=== PATIENT | male | born 1960 | race Caucasian/White ===

== ENCOUNTER 2018-11-03 10:21 | Inpatient (IN) ==
--- NOTE | 2018-11-03 10:55 | Diag Imaging Result Doc PS360 ---
EXAM: CHEST-2 VIEWS HISTORY: cough chest congestion TECHNIQUE: Chest two views COMPARISON: None. FINDINGS: The lungs are well expanded. The heart is not enlarged. The vessels are not distended. There are no infiltrates. No pleural effusions. IMPRESSION: No pneumonia Electronically signed by Richy Quiroga 11/03/2018 10:53 AM
--- NOTE | 2018-11-03 10:59 | PROVIDER DOCUMENTATION ---
HPI-Respiratory General - General Chief Complaint: General Adult Stated Complaint: COUGH / CHILLS / CHEST PAIN Time Seen by Provider: 11/03/18 10:43 Source: patient Allergies/Adverse Reactions: Patient Allergies Allergy/AdvReac Type Severity Reaction Status Date / Time No Known Allergies Allergy Verified 11/03/18 11:24 Home Medications: Home Medication List Medication Instructions Recorded Confirmed Last Taken Type NK [No Home Medications] 11/03/18 11/03/18 Unknown History - History of Present Illness-Resp Nature of Presenting Problem: Pt is a 58 year old male that presents today with the complaint of coughing for 6 weeks. She states that he has been to the urgent care twice and has tried antibiotics and steroids and nothing seems to be helping. He states he is coughing so much it is making him throw up. He also reports some chest discomfort that is worse with coughing. He reports some diarrhea but denies abdominal pain. Pt denies any family history of cardiac or respiratory problems. Quality of Pain: reports: tightness Severity in ED: reports: moderate Onset/Duration: reports: other (6 weeks ago) Timing: reports: still present Context: denies: multiple patients with similar complaints, aspiration/choking Exposure: reports: unknown cause Cough Quality/Degree: reports: moderate, dry cough Episode Frequency: no prior episodes Current Respiratory Medication Therapy: Initiated see nurses note Modifying Factors: improves with: coughing, deep breath Associated Symptoms: reports: chest pain/soreness, cough, fever/chills, headache , hurts to breathe, wheezing Similar Symptoms Previously?: No Recently seen or treated by another doctor?: Yes Review of Systems - Adult - REVIEW OF SYSTEMS - ADULT Constitutional: reports: no symptoms reported Eyes: reports: no symptoms reported Ears, Nose, Mouth & Throat: reports: no symptoms reported Cardiovascular: reports: see HPI Respiratory: reports: see HPI Gastrointestinal: reports: no symptoms reported Genitourinary: reports: no symptoms reported Musculoskeletal: reports: no symptoms reported Integumentary: reports: no symptoms reported Neurological: reports: no symptoms reported Psychiatric: reports: no symptoms reported Endocrine: reports: no symptoms reported Hematologic/Lymphatic: reports: no symptoms reported Allergic/Immunologic: reports: no symptoms reported All Other Systems: Reviewed and Negative Past History - Adult - PAST MEDICAL HISTORY-ADULT Review of Records: reports: Old Records Reviewed, Nursing Assessment Review, Medications Reviewed, Social history reviewed & non-contributory. Major Childhood Illnesses: reports: denies history Cardiovascular: reports: denies history Respiratory: reports: denies history Gastrointestinal: reports: denies history Obstetrical/Gynecological: reports: denies history Genitourinary: reports: denies history Musculoskeletal: reports: denies history Neurological: reports: denies history Psychiatric: reports: denies history Endocrine/Immune: reports: denies history Other Conditions: reports: denies history - PRIOR SURGERIES/PROCEDURES Surgical/Procedure History: reports: none - IMMUNIZATION STATUS Childhood Immunizations: See Nurse Assessment Flu Vaccine: See Nurse Assessment - FAMILY HISTORY Family History: reviewed, not pertinent - SOCIAL HISTORY Smoking: non-smoker Physical Exam-General - PHYSICAL EXAM-ADULT Initial Vital Signs Reviewed: Yes - CONSTITUTIONAL General Appearance: appears well, alert, no apparent distress - EYES Eyes: PERRL/EOMI, pink conjunctivae - HEAD, EARS, NOSE, MOUTH & THROAT HENMT: normocephalic/atraumatic, moist mucous membranes, normal ENT inspection - NECK Neck: non-tender, full range of motion, supple, normal inspection - RESPIRATORY Respiratory: chest non-tender, lungs clear, normal breath sounds, no accessory muscle use, increased rate - CARDIOVASCULAR Cardiovascular: normal peripheral pulses, regular rate, rhythm - GASTROINTESTINAL (ABDOMEN) Abdominal Exam: normal bowel sounds, non tender, soft - LYMPHATIC Lymphatic: no adenopathy - MUSCULOSKELETAL Back Exam: normal inspection, no CVA tenderness, no vertebral tenderness Extremity: normal range of motion, non-tender, normal gait, normal inspection - SKIN Integumentary: normal color, normal turgor, warm/dry - 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, grossly normal, no motor/sensory deficits - PSYCHIATRIC Psych/Mental Status: normal mood/affect, normal thought content, normal thought process, oriented x 3 - HEART Score HEART Score: History: Slightly Suspicious HEART Score: ECG: Normal HEART Score: Age: 45-65 Years HEART Score: Risk Factors for Atherosclerotic Disease: No Risk Factors Known HEART Score: Troponin: < or = Normal Limit Total HEART Score:: 1 Progress - PLAN OF CARE/RESULTS Progress/Plan/Lab Results: Vital Signs - 8 hr 11/03/18 10:30 11/03/18 12:30 11/03/18 13:47 Temperature 99.5 F Pulse Rate 95 H 90 80 Respiratory Rate 20 16 24 Blood Pressure 108/69 155/79 O2 Sat by Pulse Oximetry 96 92 L 96 Laboratory Results - last 24 hr 11/03/18 11/03/18 11/03/18 11:02 11:02 11:02 WBC 8.52 RBC 5.23 Hgb 15.6 Hct 46.2 MCV 88.3 MCH 29.8 MCHC 33.8 RDW Std Deviation 12.9 Plt Count 200 MPV 9.9 Immature Gran % (Auto) 0.2 Neut % (Auto) 80.4 H Lymph % (Auto) 8.3 L Morton % (Auto) 9.0 Eos % (Auto) 1.9 Baso % (Auto) 0.2 Immature Gran # (Auto) 0.02 Neut # (Auto) 6.84 H Lymph # (Auto) 0.71 L Morton # (Auto) 0.77 H Eos # (Auto) 0.16 Baso # (Auto) 0.02 PT INR PTT (Actin FS) D-Dimer, Quantitative Sodium Potassium Chloride Carbon Dioxide Anion Gap BUN Creatinine Estimated GFR/1.73 m2 BUN/Creatinine Ratio Glucose Calculated Osmolality Calcium Total Bilirubin AST ALT Alkaline Phosphatase Creatine Kinase 47 Troponin T < 0.010 Total Protein Albumin Globulin Albumin/Globulin Ratio 11/03/18 11/03/18 11/03/18 11:02 11:02 11:02 WBC RBC Hgb Hct MCV MCH MCHC RDW Std Deviation Plt Count MPV Immature Gran % (Auto) Neut % (Auto) Lymph % (Auto) Morton % (Auto) Eos % (Auto) Baso % (Auto) Immature Gran # (Auto) Neut # (Auto) Lymph # (Auto) Morton # (Auto) Eos # (Auto) Baso # (Auto) PT 13.7 INR 1.00 PTT (Actin FS) 27.1 D-Dimer, Quantitative 3.10 H Sodium 134 L Potassium 3.8 Chloride 97 L Carbon Dioxide 26 Anion Gap 12 BUN 14 Creatinine 0.7 Estimated GFR/1.73 m2 > 60 BUN/Creatinine Ratio 20 Glucose 111 H Calculated Osmolality 269 Calcium 8.8 Total Bilirubin 1.00 AST 17 ALT 15 Alkaline Phosphatase 94 Creatine Kinase Troponin T Total Protein 7.2 Albumin 4.0 Globulin 3.0 Albumin/Globulin Ratio 1.0 Orders Category Date Time Status Admit - [facility] Routine AdmDCTranf 11/03/18 15:48 Active Activity - Up with Assistance ORDERED Care 11/03/18 15:48 Active Nursing- Obtain EKG ONCE Care 11/03/18 10:35 Active Heart Healthy Diet Diet 11/03/18 15:49 Active CHEST-2 VIEWS [RAD] Stat Exams 11/03/18 10:35 Completed CTA [CT ANGIOGRM PULMONARY ARTERIES] [CT] Stat Exams 11/03/18 14:15 Completed CBC WITH ELECTRONIC DIFF [HEME] Stat Lab 11/03/18 11:02 Completed CK PROFILE [SP CHEM] Stat Lab 11/03/18 11:02 Completed COMPREHENSIVE METABOLIC PANEL [CHEM] Stat Lab 11/03/18 11:02 Completed D-DIMER [COAG] Stat Lab 11/03/18 11:02 Completed PROTIME WITH INR [COAG] Stat Lab 11/03/18 11:02 Completed PTT [COAG] Stat Lab 11/03/18 11:02 Completed TROPONIN T Stat Lab 11/03/18 11:02 Completed Acetaminophen [Tylenol] Med 11/03/18 15:48 Active 650 mg PO Q4H PRN PRN Albuterol 2.5MG/Ipratrop 0.5MG [Duoneb (A & A)] Med 11/03/18 11:44 Discontinued 3 ml INH NOW ONE Enoxaparin 1 mg/kg [Lovenox 1 mg/kg] Med 11/03/18 15:00 Discontinued 1 each SUBQ NOW ONE Enoxaparin [Lovenox] Med 11/03/18 16:00 Active 100 mg SUBQ Q12H Hydrocodone/APAP 7.5 mg/325 mg [Vader-7.5] Med 11/03/18 15:48 Active See Dose Instructions PO Q4H PRN Ipratropium Randolph Neb [Atrovent Neb] Med 11/03/18 16:00 Active 0.5 mg INH RTQ6H Levalbuterol Neb [Xopenex Neb] Med 11/03/18 16:00 Active 1.25 mg INH RTQ6H Ondansetron [Zofran] Med 11/03/18 15:48 Active 4 mg IV Q4H PRN PRN Aerosol Treatments Routine Oth 11/03/18 15:48 Active breathing treatment [Aerosol Treatments] Stat Oth 11/03/18 11:44 Active EKG [EKG] Stat Ther 11/03/18 10:35 Draft Transfer/Admit Order [TRANSFER] Routine Transfer 11/03/18 15:42 Ordered ED: EKG Interpretation Patient Name: LIBBY PORTER Date of : 64 Patient Status: Emergency Emergency Provider: Doctor,Unassigned Date: 11/03/18 10:47 Initialization Date: 11/03/18 10:47 This chart was entered by Estefanía Parra Scribe, acting as scribe for Djaa Abdul MD. EKG Interpretation - EKG Time of EKG reading by physician:: 10:47 EKG Read and Signed by:: Daja Abdul EKG Interpretation (*Must complete 3 of following elements*): Abnormal (inferior infarct) Rate: 85 Rhythm: nsr QRS: normal [place] Interval: normal Laboratory Tests 11/03/18 11/03/18 11/03/18 11:02 11:02 11:02 WBC 8.52 RBC 5.23 Hgb 15.6 Hct 46.2 MCV 88.3 MCH 29.8 MCHC 33.8 RDW Std Deviation 12.9 Plt Count 200 MPV 9.9 Immature Gran % (Auto) 0.2 Neut % (Auto) 80.4 H Lymph % (Auto) 8.3 L Morton % (Auto) 9.0 Eos % (Auto) 1.9 Baso % (Auto) 0.2 Immature Gran # (Auto) 0.02 Neut # (Auto) 6.84 H Lymph # (Auto) 0.71 L Morton # (Auto) 0.77 H Eos # (Auto) 0.16 Baso # (Auto) 0.02 PT INR PTT (Actin FS) D-Dimer, Quantitative Sodium Potassium Chloride Carbon Dioxide Anion Gap BUN Creatinine Estimated GFR/1.73 m2 BUN/Creatinine Ratio Glucose Calculated Osmolality Calcium Total Bilirubin AST ALT Alkaline Phosphatase Creatine Kinase 47 Troponin T < 0.010 Total Protein Albumin Globulin Albumin/Globulin Ratio 11/03/18 11/03/18 11/03/18 11:02 11:02 11:02 WBC RBC Hgb Hct MCV MCH MCHC RDW Std Deviation Plt Count MPV Immature Gran % (Auto) Neut % (Auto) Lymph % (Auto) Morton % (Auto) Eos % (Auto) Baso % (Auto) Immature Gran # (Auto) Neut # (Auto) Lymph # (Auto) Morton # (Auto) Eos # (Auto) Baso # (Auto) PT 13.7 INR 1.00 PTT (Actin FS) 27.1 D-Dimer, Quantitative 3.10 H Sodium 134 L Potassium 3.8 Chloride 97 L Carbon Dioxide 26 Anion Gap 12 BUN 14 Creatinine 0.7 Estimated GFR/1.73 m2 > 60 BUN/Creatinine Ratio 20 Glucose 111 H Calculated Osmolality 269 Calcium 8.8 Total Bilirubin 1.00 AST 17 ALT 15 Alkaline Phosphatase 94 Creatine Kinase Troponin T Total Protein 7.2 Albumin 4.0 Globulin 3.0 Albumin/Globulin Ratio 1.0 Result Diagrams: 11/03/18 11:02 11/03/18 11:02 - REASSESSMENT Reassessment #1 Time Reassessed: 13:00 Status: unchanged Reassessment Comment: Breathing tx did not help. Lab results reviewed with pt. Will do CTA chest. Reassessment #2 Time Reassessed: 14:58 Status: worsening Reassessment Comment: O2sat% has been decreasing. Pt on 2L o2 now. Pt agreeable to admit. - XRAY 1 XRAY Study: Chest Impression: See EMR Report ([facility] - [address] [place] [address], [address] [address] [facility] - [address] [place] [address] Department of Imaging Patient: LIBBY PORTER Date: 11/03/18MR#: [id number] : 1960ADM Status: PRE ERAcct#: [id number] Age/Sex: 58/MRoom/Bed: Loc: P.ED Ordering Physician: Daja Abdul MD Family Physician: None,PCP Reason for Procedure: cough chest congestion Signed EXAM: CHEST-2 VIEWS HISTORY: cough chest congestion TECHNIQUE: Chest two views COMPARISON: None. FINDINGS: The lungs are well expanded. The heart is not enlarged. The vessels are not distended. There are no infiltrates. No pleural effusions. IMPRESSION: No pneumonia Electronically signed by Richy Quiroga 11/03/2018 10:53 AM 11/03/18 1053 Interpreting Physician: Richy Quiroga MD Dictated Date/Time: 11/03/18 1052 cc: Daja Abdul MD; None,PCP) - CT/MRI 1 CT Study: Angiogram Impression: Discussed w/Radiology, See EMR Report ([facility] - [address] [facility], [address], [place] [address] [facility] - [address] [place] [address] Department of Imaging Patient: LIBBY PORTER Date: 11/03/18MR#: [id number] : 1960ADM Status: REG ERAt#: [id number] Age/Sex: 58/MRoom/Bed: Loc: P.ED Ordering Physician: Melyssa Sanders Family Physician: None,PCP Reason for Procedure: elevated d-dimer Signed EXAM: CT ANGIOGRM PULMONARY ARTERIES HISTORY: elevated d-dimer TECHNIQUE: CT chest with intravenous contrast. Pulmonary arterial protocol with MIP images. COMPARISON: None. FINDINGS: There are multiple large bilateral pulmonary emboli extending into each main lobar artery and multiple lobar branches. Emboli are more prominent on the right than the left. Trace bilateral pleural fluid. No aortic aneurysm or dissection. No cardiomegaly. No enlarged lymph nodes. There are small infiltrates in the right lower lobe. No consolidation. No bronchiectasis. IMPRESSION: Multiple bilateral pulmonary emboli. This report was discussed with Melyssa Sanders in the [place] emergency room on 11/03/2018 at 2:35 PM and was readback. This exam was performed using automated exposure control, adjustment of mA or kV according to patient size, and/or use of iterative reconstruction technique. Electronically signed by Richy Quiroga 11/03/2018 2:38 PM 11/03/18 1438 Interpreting Physician: Richy Quiroga MD Dictated Date/Time: 11/03/18 1434 cc: Melyssa Sanders; None,PCP) - CONSULTS/PCP/HOSPITALIST Notification #1 *Consult/PCP/Hospitalist*: Dr. Ace Time Discussed: 14:55 Consult Disposition: Will see in ED, Admit Departure - Departure Date of Disposition Decision: 11/03/18 Time of Disposition Decision: 15:00 DIAGNOSIS: Pulmonary embolism Qualifiers: Pulmonary embolism type: saddle Chronicity: acute Acute cor pulmonale presence: without acute cor pulmonale Qualified Code(s): I26.92 - Saddle embolus of pulmonary artery without acute cor pulmonale Disposition: ADMITTED INPATIENT Certified Medical Emergency: Emergent Condition: Stable - Critical Care Note This patient required my direct & personal management of CC.: No Attestation - Physician/ ALFONSO Attestation Patient care was provided by Advanced Practice Provider:: Yes Advanced Practice Provider:: Melyssa Sanders V. Advanced Practice Provider documentation review:: The Mid-level provider documentation, treatment plan and medical decision making was reviewed by the physician who agrees with all treatment and medical decision making by the MLP. The physician spent face to face time with patient:: No Advanced Practice Provider documentation review:: Supervising physician onsite and consulted in the evaluation and care of this patient. The physician did not have a face to face encounter with the patient.
[2018-11-03 11:29] LABS: BASO# 0.02 X1000 (0.0-0.2); BASO% 0.2 % (0.0-0.8); EOS# 0.16 X1000 (0.0-0.7); EOS% 1.9 % (0.0-10.0); HEMATOCRIT 46.2 % (42.0-52.0); HEMOGLOBIN 15.6 g/dL (14.0-18.0); IMM GRAN# 0.02 X1000 (0.0-0.04); IMM GRAN% 0.2 % (0.0-0.5); LYMPH# 0.71 X1000 (1.2-3.4); LYMPH% 8.3 % (20.5-51.1); MCH 29.8 PG (27-31); MCHC 33.8 g/dL (33-37); MCV 88.3 FL (81-99); MONO# 0.77 X1000 (0.11-0.59); MPV 9.9 FL (7.4-10.4); NEUT# 6.84 X1000 (1.4-6.5); NEUT% 80.4 % (42.2-75.2); PLT 200 X1000 (130-400); RBC 5.23 XMIL (4.7-6.1); RDW 12.9 % (11.5-14.5); WBC 8.52 X1000 (4.8-10.8)
[2018-11-03 11:31] LABS: PROTIME 13.7 Seconds (11.0-16.0)
[2018-11-03 11:32] LABS: PTT 27.1 Seconds (22.3-41.8)
[2018-11-03 11:37] LABS: AGAP 12; ALKALINE PHOSPHATASE 94 U/L (32-122); BUN 14 mg/dL (8-22); CALCIUM 8.8 mg/dL (8.8-10.2); CHLORIDE 97 mmol/L (98-107); COSMO 269; CREATININE 0.7 mg/dL (0.7-1.2); ESTIMATED GFR > 60; GLUCOSE 111 mg/dL (70-104); GOT 17 U/L (10-34); GPT 15 U/L (10-44); POTASSIUM 3.8 mmol/L (3.5-5.1); SODIUM 134 mmol/L (136-145); TCO2 26 mmol/L (25-35); TOTAL PROTEIN 7.2 g/dL (6.3-8.3)
[2018-11-03] MEDS ORDERED: DUONEB (A & A) INH ONE (11:44)
--- NOTE | 2018-11-03 13:40 | EKG Report ---
Test Performed on : 11/03/2018 10:44:53 AM Test Reason : congestion cough chest discomfort Blood Pressure : / mmHG Vent. Rate : 085 BPM Atrial Rate : 085 BPM P-R Int : 170 ms QRS Dur : 084 ms QT Int : 352 ms P-R-T Axes : 026 -19 028 degrees QTc Int : 418 ms Normal sinus rhythm. Inferior infarct , age undetermined Abnormal ECG No previous ECGs available Unconfirmed Result
--- NOTE | 2018-11-03 14:40 | Diag Imaging Result Doc PS360 ---
EXAM: CT ANGIOGRM PULMONARY ARTERIES HISTORY: elevated d-dimer TECHNIQUE: CT chest with intravenous contrast. Pulmonary arterial protocol with MIP images. COMPARISON: None. FINDINGS: There are multiple large bilateral pulmonary emboli extending into each main lobar artery and multiple lobar branches. Emboli are more prominent on the right than the left. Trace bilateral pleural fluid. No aortic aneurysm or dissection. No cardiomegaly. No enlarged lymph nodes. There are small infiltrates in the right lower lobe. No consolidation. No bronchiectasis. IMPRESSION: Multiple bilateral pulmonary emboli. This report was discussed with Melyssa Sanders in the [place] emergency room on 11/03/2018 at 2:35 PM and was readback. This exam was performed using automated exposure control, adjustment of mA or kV according to patient size, and/or use of iterative reconstruction technique. Electronically signed by Richy Quiroga 11/03/2018 2:38 PM
[2018-11-03] MEDS ORDERED: LOVENOX 1 MG/KG SUBQ ONE (15:00)
[2018-11-03] MEDS ORDERED: LOVENOX SUBQ ONE (15:15)
[2018-11-03] MEDS ORDERED: ZOFRAN IV PRN (15:48)
[2018-11-03] MEDS: LOVENOX SUBQ SCH (16:09)
[2018-11-03] MEDS: XOPENEX NEB INH SCH ×2 (17:00→23:10)
[2018-11-03] MEDS: ATROVENT NEB INH SCH ×2 (17:01→23:09)
[2018-11-03] MEDS: TYLENOL PO PRN ×2 (18:18→22:32)
--- NOTE | 2018-11-03 18:29 | Vascular Study Report ---
EXAM: Venous U/S Bilateral Legs 11/03/2018 HISTORY: elevated ddimer; Pulm Emboli TECHNIQUE: Compression venous ultrasound of the lower extremities with color Doppler flow COMMENT: The left popliteal vein is incompressible. It is not completely obstructed. There is no evidence of deep venous thrombosis in the right leg. No abnormal fluid collections are demonstrated. IMPRESSION: Deep venous thrombosis in the left popliteal vein without obstruction. Electronically signed by Hosea Faria 11/03/2018 6:27 PM
--- NOTE | 2018-11-03 18:46 | HISTORY AND PHYSICAL ---
CHIEF COMPLAINT: Shortness of breath. HISTORY OF PRESENT ILLNESS: Mr. Teodoro Quevedo is a 58-year-old male with a medical history of essentially nothing. He does state that over the last 6 weeks, he has had issues with shortness of breath, pain with coughing, nonproductive cough, coughing so hard that he throws up, severe chest pains with deep breaths, subjective low grade fever, and apparently 6 weeks ago he went to an urgent care where he was given antibiotics and steroids for a diagnosis of bronchitis. It was never improved. It continued to get worse. Apparently, he has been to the urgent care twice with antibiotics and steroids. Since then, he has been reporting some diarrhea. We will probably have to get some stool samples to make sure there is no Clostridium difficile, given that he has been given antibiotics. Otherwise, denies abdominal pain. He was currently eating a ham sandwich at the bedside. Deep breaths tend to make him cough more frequently as well. Imaging reveals that he has bilateral pulmonary emboli. He has been started on weight- based Lovenox and he will be monitored overnight in the ICU. PAST MEDICAL HISTORY: None. SURGICAL HISTORY: 1. Vasectomy at 25. 2. Root canal. 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 States he has never smoked tobacco. He drinks 1 or 2 beers on the weekends. He has smoked marijuana back in his 20s, but none now. His oldest daughter currently lives at home. He will be getting next month. FAMILY HISTORY: Mother never went to the doctor until she was 88. She at 92 and had a history of CHF, COPD, and blood clots in her later years. Father had some sort of cardiac issue, but at 87. ALLERGIES: No known drug allergies. HOME MEDICATIONS: None. REVIEW OF SYSTEMS: A 14 point review of systems are complete and all are negative for those mentioned above in HPI. PHYSICAL EXAMINATION: VITAL SIGNS: Temperature 99.5 degrees, heart rate 80, respiratory rate 24, blood pressure 155/79, O2 saturation 96% on 2 L. He is 6 feet 4 inches tall, 230 pounds, with a BMI of 28. GENERAL: Mr. Teodoro Quevedo is a 58-year-old male. He is in no acute distress. He is able to answer questions appropriately. HEENT: Atraumatic, normocephalic. Pupils equal, round, and reactive to light. Extraocular movements intact. Mucous membranes are dry. NECK: Trachea midline. CARDIOVASCULAR: S1, S2. Regular rate and rhythm. No rubs, gallops, murmurs. No lower extremity edema. +2 dorsalis and radial pulses. PULMONARY: Clear to auscultate. Bilateral breath sounds. No accessory muscle use or work of breathing noted. When he coughs, it does sound coarse, but otherwise sound clear. He is decreased in the bases. He is tolerating 2 L nasal cannula. GASTROINTESTINAL: Abdomen is soft, nontender, nondistended. Positive bowel sounds x4. EXTREMITIES: Moves all extremities equally. Full range of motion. NEUROLOGIC: Alert and oriented x3. Follows commands. Sensory is intact. SKIN: Warm, dry, intact. LABORATORY DATA: White blood cells 8000, hemoglobin 15, hematocrit 46, platelet count 300,000. INR is 1.00. D-dimer is 3.10. Sodium 134, potassium 3.8, BUN 14, creatinine 0.7, glucose 111, calcium 8.8, bilirubin 1.00, AST is 17, ALT is 15, CK is 47, troponin less than 0.01. Albumin is 4.0. IMAGING: Pulmonary arteriogram: Multiple bilateral pulmonary emboli. There are infiltrates in the right lower lobe. Chest x-ray: No pneumonia. EKG: Normal sinus rhythm, rate 85, QTc is 418. ASSESSMENT AND PLAN: 1. Bilateral pulmonary emboli. He will be on weight-based Lovenox. We will monitor overnight in the ICU. Will get an echocardiogram to rule out any cardiac stress with it. 2. Frequent treatment for bronchitis, with CT showing right lower lobe infiltrate. He has a little bit of a low grade temperature of 99 degrees. White count is normal at 8000. 3. Elevated D-dimer, secondary to the pulmonary emboli, but we will go ahead and get a venous ultrasound, as well. 4. Deep venous thrombosis prophylaxis. Again, he is on weight-based Lovenox. Dictated by ZOILA Lundberg for Rob Strauss MD Addendum: Patient seen and examined by myself. Agree with ZOILA note. It reflects my assessment and plan. Patient is being admitted to hospital for PE. Will order echocardiogram to rule out any right heart strain and will go from there. Will provide antibiotics for possible bronchitis as well. cc: ZOILA Lundberg MD MTDD
--- NOTE | 2018-11-03 18:57 | ED EKG INTERP ---
This chart was entered by Estefanía Parra Scribe, acting as scribe for Daja Abdul MD. EKG Interpretation - EKG Time of EKG reading by physician:: 10:47 EKG Read and Signed by:: Daja Abdul EKG Interpretation (*Must complete 3 of following elements*): Abnormal (inferior infarct) Rate: 85 Rhythm: nsr QRS: normal [place] Interval: normal Attestation - Physician/ ALFONSO Attestation Patient care was provided by Advanced Practice Provider:: No The physician spent face to face time with patient:: Yes Advanced Practice Provider documentation review:: Supervising physician onsite and consulted in the evaluation and care of this patient. The physician did have a face to face encounter with the patient. This chart was documented by the indicated scribe, (Estefanía Parra Scribe) and accurately reflects the services I performed and decisions made by me, Daja Abdul MD, as attested by the provider's signature.
--- NOTE | 2018-11-03 20:32 | ECHO REPORT ---
ORDER DATE: 11/03/2018 INDICATION: Patient with possible pulmonary embolus. M-MODE MEASUREMENTS: Left ventricle end diastole: 4.3. Left ventricle end systole: 2.6. Posterior wall: 1.1. Interventricular septum: 1.1. Left atrium: 4.4. Aortic root: 4.1. SUMMARY OF 2-DIMENSIONAL IMAGIN. Left ventricular function appears to be normal. Ejection fraction estimated at 65% to 70%. The right side of the heart was not well visualized. I cannot comment on whether or not it is enlarged or not. 2. The left atrium appears to be normal. The aortic valve appears to be grossly normal. Color flow mapping unremarkable. 3. The mitral valve appears to be grossly normal. Color flow mapping unremarkable. 4. Pulsed wave Doppler of mitral inflow is normal. 5. Tissue Doppler of septal and lateral mitral annulus averages 7.5 cm. There is no diastolic dysfunction. 6. Pulmonary venous flow is normal. 7. The tricuspid valve is unremarkable. Pulmonary pressure cannot be calculated. 8. The pulmonic valve was not well visualized. 9. There is no pericardial effusion, no mass, and no thrombus. SUMMARY: This study shows: 1. Normal left ventricular systolic function. 2. No diastolic dysfunction. 3. The right side of the heart is not well visualized. 4. Unremarkable valvular structures. Clinical correlation recommended. cc: MD Tatiana Park CRNP
[2018-11-04] MEDS: ATROVENT NEB INH SCH ×4 (03:04→21:23)
[2018-11-04] MEDS: XOPENEX NEB INH SCH ×4 (03:05→21:24)
[2018-11-04] MEDS: LOVENOX SUBQ SCH ×2 (04:18→15:55)
[2018-11-04 06:01] LABS: BASO# 0.02 X1000 (0.0-0.2); BASO% 0.3 % (0.0-0.8); EOS# 0.27 X1000 (0.0-0.7); EOS% 4.7 % (0.0-10.0); HEMATOCRIT 43.8 % (42.0-52.0); IMM GRAN# 0.02 X1000 (0.0-0.04); IMM GRAN% 0.3 % (0.0-0.5); LYMPH# 1.29 X1000 (1.2-3.4); LYMPH% 22.4 % (20.5-51.1); MCH 30.3 PG (27-31); MCHC 34.2 g/dL (33-37); MCV 88.5 FL (81-99); MONO# 0.83 X1000 (0.11-0.59); MONO% 14.4 % (1.7-9.3); NEUT# 3.34 X1000 (1.4-6.5); NEUT% 57.9 % (42.2-75.2); PLT 161 X1000 (130-400); RBC 4.95 XMIL (4.7-6.1); RDW 13.4 % (11.5-14.5); WBC 5.77 X1000 (4.8-10.8)
[2018-11-04 06:13] LABS: INR 1.15; PROTIME 14.9 Seconds (11.0-16.0)
[2018-11-04 06:14] LABS: PTT 40.4 Seconds (22.3-41.8)
[2018-11-04 06:26] LABS: AGAP 11; ALB/GLOB RATIO 1.3; ALBUMIN 3.6 g/dL (3.5-5.0); ALKALINE PHOSPHATASE 83 U/L (32-122); BUN 11 mg/dL (8-22); CALCIUM 8.6 mg/dL (8.8-10.2); CHLORIDE 103 mmol/L (98-107); COSMO 278; CREATININE 0.7 mg/dL (0.7-1.2); ESTIMATED GFR > 60; GLUCOSE 110 mg/dL (70-104); GOT 13 U/L (10-34); GPT 14 U/L (10-44); MAGNESIUM 2.3 mg/dL (1.5-2.7); POTASSIUM 3.8 mmol/L (3.5-5.1); SODIUM 139 mmol/L (136-145); TCO2 25 mmol/L (25-35); TOTAL BILIRUBIN 0.45 mg/dL (0.20-1.00); TOTAL PROTEIN 6.3 g/dL (6.3-8.3)
--- NOTE | 2018-11-04 07:17 | Diag Imaging Result Doc PS360 ---
EXAM: CHEST-PORTABLE 11/04/2018 HISTORY: pulm emboli TECHNIQUE: AP portable at 0551 COMMENT: There is increased opacity in the left base and generally worsened inspiration compared to 11/03/2018. IMPRESSION: Worsened atelectasis versus pneumonia left lower lobe. Electronically signed by Hosea Faria 11/04/2018 7:15 AM
--- NOTE | 2018-11-04 07:47 | EKG Report ---
Test Performed on : 11/04/2018 06:24:51 AM Test Reason : pulmonary emboli Blood Pressure : / mmHG Vent. Rate : 064 BPM Atrial Rate : 064 BPM P-R Int : 188 ms QRS Dur : 086 ms QT Int : 392 ms P-R-T Axes : 019 010 011 degrees QTc Int : 404 ms Normal sinus rhythm. with sinus arrhythmia. Possible Inferior infarct (cited on or before 03-NOV-2018) Otherwise normal ECG When compared with ECG of 03-NOV-2018 10:44, (Unconfirmed) No significant change was found Confirmed by Thania VIRK, Bacilio Carrero ([id number]) on 11/05/2018 8:14:58 PM
[2018-11-04] MEDS: NORCO-7.5 PO PRN (16:06)
--- NOTE | 2018-11-04 16:16 | PROGRESS NOTE ---
DATE: 11/04/2018 SUBJECTIVE: Patient admitted on 11/03/2018, or yesterday, complaining shortness of breath. He has no primary care physician. This is a 58-year-old with a medical history of essentially nothing. He does state that over the last 6 weeks he has had issues with shortness of breath, pain, coughing a non-productive cough and coughing so severely sometimes he throws up, severe chest pains with deep breaths, subjective and a low-grade fever. Approximately 6 weeks ago, he went to urgent care, was given antibiotics and steroids, diagnosed with bronchitis, but he feels like it has never improved. He has been to Urgent Care twice, got antibiotics and steroids. We will probably have to get some stool samples as he has loose stools in order to make sure he does not have any Clostridium difficile. Currently was eating a ham sandwich when they evaluated him. His deep breaths made him cough more frequently as well. SURGICAL HISTORY: 1. Vasectomy at age 25. 2. Root canal. PAST MEDICAL HISTORY: Really no medical history. ASSESSMENT AND PLAN: 1. Bilateral pulmonary emboli so he got an echocardiogram to look for right ventricular strain. His pulmonary arteriogram showed multiple bilateral pulmonary emboli. There were infiltrates in the right lower lobe. 2. Frequent treatment for bronchitis. Sounds like postnasal drip syndrome. 3. Continue deep venous thrombosis prophylaxis. The patient on enoxaparin 1 mg/kg subcutaneous, and we will give 100 mg subcutaneous q.12 h. His breathing seems to be comfortable and hemodynamically stable. 4. Bronchitis. Sounds like postnasal drip syndrome. No sign of infection. cc: MD DARNELL Simmons
[2018-11-05] MEDS: ATROVENT NEB INH SCH ×4 (03:13→22:18)
[2018-11-05] MEDS: XOPENEX NEB INH SCH ×5 (03:13→22:18)
[2018-11-05] MEDS: LOVENOX SUBQ SCH ×2 (03:58→15:39)
[2018-11-05 06:37] LABS: BASO# 0.01 X1000 (0.0-0.2); BASO% 0.2 % (0.0-0.8); EOS# 0.28 X1000 (0.0-0.7); EOS% 4.5 % (0.0-10.0); HEMATOCRIT 43.8 % (42.0-52.0); HEMOGLOBIN 15.1 g/dL (14.0-18.0); IMM GRAN# 0.03 X1000 (0.0-0.04); IMM GRAN% 0.5 % (0.0-0.5); LYMPH# 1.22 X1000 (1.2-3.4); LYMPH% 19.6 % (20.5-51.1); MCH 30.8 PG (27-31); MCHC 34.5 g/dL (33-37); MCV 89.2 FL (81-99); MONO# 0.72 X1000 (0.11-0.59); MONO% 11.6 % (1.7-9.3); MPV 10.1 FL (7.4-10.4); NEUT# 3.96 X1000 (1.4-6.5); NEUT% 63.6 % (42.2-75.2); PLT 180 X1000 (130-400); RBC 4.91 XMIL (4.7-6.1); RDW 13.3 % (11.5-14.5); WBC 6.22 X1000 (4.8-10.8)
[2018-11-05 07:18] LABS: AGAP 13; ALB/GLOB RATIO 1.4; ALBUMIN 3.7 g/dL (3.5-5.0); ALKALINE PHOSPHATASE 81 U/L (32-122); BUN 14 mg/dL (8-22); CALCIUM 8.8 mg/dL (8.8-10.2); CHLORIDE 101 mmol/L (98-107); COSMO 279; CREATININE 0.7 mg/dL (0.7-1.2); ESTIMATED GFR > 60; GLUCOSE 116 mg/dL (70-104); GOT 13 U/L (10-34); GPT 15 U/L (10-44); MAGNESIUM 2.1 mg/dL (1.5-2.7); POTASSIUM 3.8 mmol/L (3.5-5.1); SODIUM 139 mmol/L (136-145); TCO2 25 mmol/L (25-35); TOTAL PROTEIN 6.4 g/dL (6.3-8.3)
[2018-11-05] MEDS: NORCO-7.5 PO PRN (08:55)
--- NOTE | 2018-11-05 17:34 | PROGRESS NOTE ---
DATE: 11/05/2018 SUBJECTIVE: Mr. Quevedo is feeling better. He still has a cough, but his breathing is comfortable and I think he can start getting out of bed some. OBJECTIVE: Vital signs: Temp is 98.6 degrees, pulse 60, respirations 18, blood pressure 117/82. HEENT: Pupils are equal and round. Lungs: Clear in all lung christopher. Cardiovascular: Regular rhythm and rate without murmur or S3. Abdomen: Soft. Skin: Warm and dry. Urine output is 900 mL. ASSESSMENT AND PLAN: 1. Bilateral pulmonary emboli. Seems to be doing well. Hemodynamically stable. No sign of right heart strain. Maybe he could possibly go home tomorrow. We will put him on Xarelto. 2. Chronic cough which I suspect is from postnasal drip and bronchial irritation. 3. Nutrition looks good. I do not see any change. Plan is maybe to go home tomorrow on Xarelto. Right now he is on Lovenox 100 mg subcutaneous q.12. cc: Wang Byers MD
[2018-11-06] MEDS: LOVENOX SUBQ SCH (03:18)
[2018-11-06] MEDS: ATROVENT NEB INH SCH (05:18)
[2018-11-06] MEDS: XOPENEX NEB INH SCH (05:19)
[2018-11-06 06:06] LABS: BASO# 0.03 X1000 (0.0-0.2); BASO% 0.6 % (0.0-0.8); EOS# 0.39 X1000 (0.0-0.7); EOS% 7.6 % (0.0-10.0); HEMATOCRIT 43.1 % (42.0-52.0); HEMOGLOBIN 14.7 g/dL (14.0-18.0); IMM GRAN# 0.03 X1000 (0.0-0.04); IMM GRAN% 0.6 % (0.0-0.5); LYMPH# 1.54 X1000 (1.2-3.4); LYMPH% 29.9 % (20.5-51.1); MCH 30.4 PG (27-31); MCHC 34.1 g/dL (33-37); MONO% 9.7 % (1.7-9.3); MPV 9.9 FL (7.4-10.4); NEUT# 2.66 X1000 (1.4-6.5); NEUT% 51.6 % (42.2-75.2); PLT 185 X1000 (130-400); RBC 4.84 XMIL (4.7-6.1); RDW 13.2 % (11.5-14.5); WBC 5.15 X1000 (4.8-10.8)
[2018-11-06 06:26] LABS: AGAP 10; ALB/GLOB RATIO 1.1; ALBUMIN 3.4 g/dL (3.5-5.0); ALKALINE PHOSPHATASE 78 U/L (32-122); BUN 11 mg/dL (8-22); CALCIUM 8.6 mg/dL (8.8-10.2); CHLORIDE 101 mmol/L (98-107); COSMO 276; CREATININE 0.8 mg/dL (0.7-1.2); ESTIMATED GFR > 60; GLUCOSE 108 mg/dL (70-104); GOT 20 U/L (10-34); GPT 20 U/L (10-44); POTASSIUM 3.8 mmol/L (3.5-5.1); SODIUM 138 mmol/L (136-145); TCO2 27 mmol/L (25-35); TOTAL BILIRUBIN 0.42 mg/dL (0.20-1.00); TOTAL PROTEIN 6.5 g/dL (6.3-8.3)
[2018-11-06 08:09] VITALS: BP 109/75
--- NOTE | 2018-11-06 16:01 | DISCHARGE SUMMARY ---
ADMISSION DATE: 11/03/2018 DISCHARGE DATE: 11/06/2018 HISTORY: Mr. Quevedo was admitted on 11/03/2018. He came in with shortness of breath. He has no primary care physician. A 58-year-old male with medical history which has been essentially unremarkable. He stated over the last 6 weeks he had issues with shortness of breath, pain and coughing, nonproductive cough, coughing so hard that sometimes he would throw up, severe chest pains with deep breath, and subjective low-grade fever. Apparently 6 weeks ago, he went to Urgent Care, was given antibiotics and steroids for diagnosis of bronchitis. This never improved and continued to get worse. He had been to Urgent Care twice with each time some antibiotics and steroids. He has been reporting some diarrhea or loose stools, and so was admitted to the hospital. CT scan showed multiple bilateral pulmonary emboli. He was started on Lovenox 1 mg/kg subcutaneously twice a day, and he remained stable. No sign of right heart strain, hemodynamically stable, and felt like he had no fever. Leola like he could go home on 11/06/2018. We will plan on putting him on Xarelto. We will load him with 15 mg twice a day for 21 days and then go to 20 mg daily. His lab and electrolytes were unremarkable. Renal function was good. Encouraged him to get a primary care physician. He will need to stay on Xarelto a minimum of 6 months probably a year. DISCHARGE MEDICATIONS: 1. Xarelto 15 mg p.o. twice a day for 21 days and then 20 mg daily. I did discuss the risk of bleeding. 2. I will let him have some Rupert to take p.r.n. for some pleuritic pain, give him a total of 27.5 that he could take q.6 hours p.r.n. cc: Wang Byers MD
== END 2018-11-06 09:20 | disposition home or self-care (01) | DRG 176 ==
LOC: P.ED 10:21 → P.ICU 16:39 → SUATTDRO 16:39 → P.EDIPHOLD 18:16 → 2N 20:01
PROVIDERS: ATTEND Emergency Medicine